=== PATIENT | male | born 1995 | race Caucasian/White ===

== ENCOUNTER 2018-01-31 01:07 | Emergency (ER) | payer OTHER ==
[~2018-01-31] VITALS: Ht 177.8 cm; Wt 74.1 kg
[2018-01-31 01:14] VITALS: TEMP 97.4
[2018-01-31] MEDS ORDERED: CELEXA10 MG PO (01:16)
[2018-01-31 02:52] VITALS: BP 101/78; PULSE 58
== END 2018-01-31 02:57 | disposition home or self-care (01) ==
LOC: COL.ER 01:07
DX: R53.83 Other fatigue (principal); T39.1X5A Adverse effect of 4-Aminophenol derivatives, initial encounter; F32.9 Major depressive disorder, single episode, unspecified; Z90.89 Acquired absence of other organs